=== PATIENT | female | born 1985 | race African-American/Black ===

== ENCOUNTER 2016-11-14 19:22 | Emergency (ER) | payer MEDICAID ==
[~2016-11-14] VITALS: Ht 160 cm; Wt 129.3 kg
[~2016-11-14 19:22] MED LIST: NAPR500 PO; ULTR50TA PO
[2016-11-14 19:51] VITALS: BP 126/88; PULSE 107; RESP 16; TEMP 100.9; O2SAT 100
[2016-11-14 20:23] VITALS: BP 139/76; PULSE 96; RESP 18; TEMP 100.9; O2SAT 100
[2016-11-14] MEDS ORDERED: SODIUM CHLORIDE 0.9% FLUSH 5 ML FLUSH IVF PRN (21:15)
[2016-11-14] MEDS ORDERED: SODIUM CHLOR 0.9% 1000 ML INJ 1,000 ML IV ONE (21:15)
[2016-11-14 21:26] VITALS: RESP 18; O2SAT 99
[2016-11-14 21:28] VITALS: BP_SYST 134; BP_SYST 138; BP_DIAS 74; BP_DIAS 76; PULSE 94
[2016-11-14 21:31] LABS: AUTOMATED NEUTROPHIL # 2.9 TH/MM3 (1.8-7.7); BASOPHIL % 0.5 % (0.0-2.0); EOSINOPHIL # 0.1 TH/MM3 (0-0.4); HEMATOCRIT 38.2 % (35.0-46.0); HEMO FLAGS DIFF FINAL; LYMPH % 32.5 % (9.0-44.0); LYMPHOCYTE # 1.7 TH/MM3 (1.0-4.8); MEAN CELL VOLUME 80.3 FL (80.0-100.0); MEAN CORPUSCULAR HEMOGLOBIN 26.7 PG (27.0-34.0); MEAN CORPUSCULAR HGB CONC 33.3 % (32.0-36.0); PLATELET COUNT 224 TH/MM3 (150-450); RED BLOOD COUNT 4.75 MIL/MM3 (4.00-5.30); RED CELL DISTRIBUTION WIDTH 12.2 % (11.6-17.2); WHITE BLOOD COUNT 5.2 TH/MM3 (4.0-11.0)
--- NOTE | 2016-11-14 21:49 | RADHPO ---
EXAM DATE/TIME: 11/14/2016 21:35 [place] COMPARISON: CHEST PA & LAT, December 16, 2014, 12:45. INDICATIONS : HEADACHE, BODYACHES AND LIGHTHEADED PAST 36 HOURS MEDICAL HISTORY : No additional SURGICAL HISTORY : Cholecystectomy. ENCOUNTER: Initial ACUITY: 2 days PAIN SCORE: 5/10 LOCATION: Bilateral chest FINDINGS: PA and lateral views of the chest demonstrate the lungs to be symmetrically aerated without evidence of mass, infiltrate or effusion. The PA study is needed nspiratory and apical lordotic in technique with accentuation of lung markings. The cardiomediastinal contours are unremarkable. Osseous structu res are intact. CONCLUSION: Suboptimal exam demonstrating no acute cardiopulmonary disease. Crescencio Gomes MD on November 14, 2016 at 21:47 Board Certified Radiologist. This report was verified electronically.
[2016-11-14 21:54] LABS: BICARBONATE 25.3 MEQ/L (21.0-32.0)
[2016-11-14 22:10] VITALS: BP 131/70; PULSE 92; RESP 18; O2SAT 99
[2016-11-14] MEDS ORDERED: ONDANSETRON HCL 4 MG/2 ML VIAL IV PUSH ONE (22:45)
[2016-11-14] MEDS ORDERED: KETOROLAC TROMETHAMINE 30 MG/ML (IVP) VIAL IV PUSH ONE (22:45)
[2016-11-14 23:30] VITALS: BP 136/72; PULSE 92; RESP 18; O2SAT 99
[2016-11-14 23:31] LABS: BLOOD, URINE NEG (NEG); GLUCOSE,URINE NEG (NEG); KETONE, URINE NEG (NEG); NITRITE,URINE NEG (NEG)
[2016-11-14] MEDS ORDERED: IBUP-232 PO (23:35)
--- NOTE | 2016-11-14 23:36 | PD ---
HPI Chief Complaint: Headache Time Seen by Provider: 20:25 Travel History International Travel<30 days: No Contact w/Intl Traveler<30days: No Traveled to known affect area: No History of Present Illness HPI Patient is a 31-year-old female presents with fever body aches chest congestion and a headache for the past week. Patient states the symptoms began gradually worsening. Tried [id number] cold medicine at home without relief. Denies any cough or sputum production. Denies any foreign travel. Has not gotten a flu shot this year. Denies any nuchal rigidity. PFSH Past Medical History Diminished Hearing: No Immunizations Current: Yes Tetanus Vaccination: < 5 Years Influenza Vaccination: Yes ?: Not LMP: 3 YEARS AGO Menopausal: No : 3 Para: 3 Past Surgical History Cholecystectomy: Yes Social History Alcohol Use: No Tobacco Use: No Substance Use: No Allergies-Medications (Allergen,Severity, Reaction): Coded Allergies: No Known Allergies (Unverified , 11/14/16) Reported Meds & Prescriptions Reported Meds & Active Scripts Active Ibuprofen 600 Mg Tab 600 Mg PO Q6H PRN Review of Systems Except as stated in HPI: all other systems reviewed are Neg Physical Exam Narrative GENERAL: Well-developed well-nourished in no apparent distress, overweight. SKIN: Warm and dry. HEAD: Atraumatic. Normocephalic. EYES: Pupils equal and round. No scleral icterus. No injection or drainage. ENT: No nasal bleeding or discharge. Mucous membranes pink and moist. NECK: Trachea midline. No JVD. Kernig's and Brudzinski signs negative. CARDIOVASCULAR: Regular rate and rhythm. No murmur appreciated. RESPIRATORY: No accessory muscle use. Clear to auscultation. Breath sounds equal bilaterally. GASTROINTESTINAL: Abdomen soft, non-tender, nondistended. Hepatic and splenic margins not palpable. MUSCULOSKELETAL: No obvious deformities. No clubbing. No cyanosis. No edema. NEUROLOGICAL: Awake and alert. cranial nerves II through XII are grossly intact and nonfocal 5 out of 5 strength in all 4 extremities. Motor grossly within normal limits. Normal speech. PSYCHIATRIC: Appropriate mood and affect; insight and judgment normal. Data Data Last Documented VS Vital Signs Date Time Temp Pulse Resp B/P Pulse Ox O2 Delivery O2 Flow Rate FiO2 11/14/16 23:59 74 18 98 11/14/16 23:30 136/72 Room Air 11/14/16 20:23 100.9 Orders Basic Metabolic Panel (Bmp) (11/14/16 21:02) Complete Blood Count With Diff (11/14/16 21:02) Ecg Monitoring (11/14/16 21:02) Bilateral Bp Monitoring (11/14/16 21:02) Iv Access Insert/Monitor (11/14/16 21:02) Oximetry (11/14/16 21:02) Oxygen Administration (11/14/16 21:02) Sodium Chloride 0.9% Flush (Ns Flush) (11/14/16 21:15) Chest, Pa & Lat (11/14/16 21:02) Sodium Chlor 0.9% 1000 Ml Inj (Ns 1000 M (11/14/16 21:15) Influenzae A/B Antigen (11/14/16 21:02) Urinalysis - C+S If Indicated (11/14/16 22:32) Ed Urine Pregnancytest Poc (11/14/16 22:32) Ketorolac Inj (Toradol Inj) (11/14/16 22:45) Ondansetron Inj (Zofran Inj) (11/14/16 22:45) Cath For Specimen (11/14/16 23:05) Urine Culture (11/14/16 23:15) Labs Laboratory Tests Test 11/14/16 11/14/16 21:10 23:15 White Blood Count 5.2 TH/MM3 Red Blood Count 4.75 MIL/MM3 Hemoglobin 12.7 GM/DL Hematocrit 38.2 % Mean Corpuscular Volume 80.3 FL Mean Corpuscular Hemoglobin 26.7 PG Mean Corpuscular Hemoglobin 33.3 % Concent Red Cell Distribution Width 12.2 % Platelet Count 224 TH/MM3 Mean Platelet Volume 8.6 FL Neutrophils (%) (Auto) 56.0 % Lymphocytes (%) (Auto) 32.5 % Monocytes (%) (Auto) 9.0 % Eosinophils (%) (Auto) 2.0 % Basophils (%) (Auto) 0.5 % Neutrophils # (Auto) 2.9 TH/MM3 Lymphocytes # (Auto) 1.7 TH/MM3 Monocytes # (Auto) 0.5 TH/MM3 Eosinophils # (Auto) 0.1 TH/MM3 Basophils # (Auto) 0.0 TH/MM3 CBC Comment DIFF FINAL Differential Comment Sodium Level 139 MEQ/L Potassium Level 4.0 MEQ/L Chloride Level 105 MEQ/L Carbon Dioxide Level 25.3 MEQ/L Anion Gap 9 MEQ/L Blood Urea Nitrogen 6 MG/DL Creatinine 0.76 MG/DL Estimat Glomerular Filtration 107 ML/MIN Rate Random Glucose 90 MG/DL Calcium Level 8.3 MG/DL Urine Collection Type Urine Color YELLOW Urine Turbidity SLIGHT Urine pH 6.0 Urine Specific [place] 1.014 Urine Protein NEG mg/dL Urine Glucose (UA) NEG mg/dL Urine Ketones NEG mg/dL Urine Occult Blood NEG Urine Nitrite NEG Urine Bilirubin NEG Urine Leukocyte Esterase MOD Urine RBC 0-3 /hpf Urine WBC 9-14 /hpf Urine Squamous Epithelial 0-5 /hpf Cells Urine Bacteria OCC /hpf Urine Mucus OCC /lpf Microscopic Urinalysis Comment CULTURE INDICATED MDM Medical Decision Making Medical Screen Exam Complete: Yes Emergency Medical Condition: Yes Differential Diagnosis Influenza, viral-like illness, pneumonia, meningitis is highly unlikely, Narrative Course Patient roomed in the emergency department, labs are reassuring, white blood count is 5.2, chemistry is normal, UA shows contaminated specimen which is nitrate negative. Chest x-ray negative, patient was given multiple medications in the emergency department and began feeling better. She stated that she wanted to go home. Discussed with her follow-up with a primary care physician or return to ED criteria. Diagnosis Primary Impression: Flu-like symptoms Med/Other Pt SpecificInfo: Prescription(s) given Scripts Ibuprofen 600 Mg [id number] Mg PO Q6H PRN (PAIN SCALE 1 TO 10) #20 TAB Ref 0 Prov:Reagan Worley MD 11/14/16 Disposition: 01 DISCHARGE HOME Condition: Stable Reagan Worley MD Nov 14, 2016 23:35
[2016-11-14 23:38] LABS: URINE COLOR YELLOW (YELLW/STRAW)
[2016-11-14 23:39] LABS: SQUAMOUS EPITHELIAL CELL URINE 0-5 /hpf (0-5)
[2016-11-14 23:40] LABS: MUCUS URINE OCC /lpf (OCC); RBC, URINE 0-3 /hpf (0-3)
[2016-11-14 23:41] LABS: BACTERIA, URINE OCC /hpf; COMMENT (UR) CULTURE INDICATED; CULTURE IF INDICATED CULTURE INDICATED
[2016-11-30] MEDS ORDERED: SUMA25TA2 PO (10:51)
[2017-04-26] MEDS ORDERED: ALBU6.7H INH (10:23)
[2017-04-26] MEDS ORDERED: FISH1000 PO (10:27)
== END 2016-11-15 | disposition home or self-care (01) ==
LOC: PHED 19:22
DX: R51 Headache (principal); M79.1 Myalgia; R09.89 Other specified symptoms and signs involving the circulatory and respiratory systems
CPT/HCPCS: 71020; 80048; 81001; 84703; 85025; 87086; 87804; 96361; 96374; 96375; 99284; J1885; J2405; J7030

== ENCOUNTER → 2017-05-04 | Outpatient (CLI) | payer MEDICAID ==
[~2017-05-04] MED LIST changes: +ALBU6.7H INH; +FISH1000 PO; +IBUP-232 PO; -NAPR500 PO; +SUMA25TA2 PO; -ULTR50TA PO
--- NOTE | 2017-05-11 11:58 | RSPPFT ---
DATE OF PROCEDURE: 05/04/17 COMMENTS: Spirometry demonstrates an FEV1 of 2.2 at 86% of predicted, FVC of 2.5 at 81%, FEF 25-75 at 120%. Post-bronchodilator study demonstrated no significant change. Flow volume loops suggest a restrictive pattern. IMPRESSION: 1. No significant obstructive disease. 2. Mild restrictive disease based on reduced FVC. 3. No significant change following use of bronchodilator.
== END ==
LOC: HRSP 11:05
PROVIDERS: ATTEND Family Medicine
DX: R06.02 Shortness of breath (principal)
CPT/HCPCS: 94060

== ENCOUNTER 2017-07-20 18:08 | Emergency (ER) | payer MEDICAID ==
[2017-07-20 18:28] VITALS: BP 147/91; PULSE 87; RESP 20; TEMP 98.6; O2SAT 100
[2017-07-20] MEDS ORDERED: ALBU0.08 NEB (19:07)
[2017-07-20] MEDS ORDERED: BENZ100 PO (19:07)
--- NOTE | 2017-07-20 19:21 | PD ---
HPI Chief Complaint: Cold / Flu Symptoms Time Seen by Provider: 18:53 Travel History International Travel<30 days: No Contact w/Intl Traveler<30days: No Traveled to known affect area: No History of Present Illness HPI 32-year-old female presents to the emergency room for evaluation of mildly productive cough, congestion, and sore throat for the past 3 days. She has several sick contacts. Patient has not been taking anything for her symptoms. Cough is so severe, and is coughing her back and chest wall to her. Sputum is clear. She has been using her nebulizer treatment which moderately relieves symptoms. Inhaler does not seem to be helping. Patient denies fever, chills, earache, nausea, and vomiting. No chronic medical conditions or daily medications. PFSH Past Medical History Diminished Hearing: No Immunizations Current: Yes ?: Not LMP: 4 YEARS AGO, IUD Menopausal: No : 3 Para: 3 Past Surgical History Cholecystectomy: Yes Social History Alcohol Use: No Tobacco Use: No Substance Use: No Allergies-Medications (Allergen,Severity, Reaction): Coded Allergies: No Known Allergies (Unverified , 04/26/17) Reported Meds & Prescriptions Reported Meds & Active Scripts Active Tessalon Perles (Benzonatate) 100 Mg Cap 100 Mg PO TID PRN Albuterol Neb (Albuterol Sulfate) 2.5 Mg/3 Ml Neb 2.5 Mg NEB TID NEB PRN Proventil Hfa 6.7 GM Inh (Albuterol Sulfate) 90 Mcg/Act Aer 1 Puff INH Q4H PRN Sumatriptan (Sumatriptan Succinate) 25 Mg Tab 25 Mg PO ONCE PRN If a satisfactory response has not been obtained at 2 hours, a second dose may be administered Review of Systems Except as stated in HPI: all other systems reviewed are Neg Physical Exam Narrative GENERAL: Well-nourished, well-developed female in no acute distress. Afebrile. Ambulatory. SKIN: Focused skin assessment warm/dry. HEAD: Normocephalic. EYES: No scleral icterus. No injection or drainage. ENT: Mucosa pink and moist. Mild erythema without edema or exudates. No uvular edema. No uvular, palatal, or tonsillar deviation. Airway patent. Nasal turbinates appear normal without nasal blood, purulent drainage or septal hematoma. EARS: Bilateral pinnae and external canals appear within normal limits. Bilateral tympanic membranes without erythema, dullness or perforation. NECK: Supple, trachea midline. No JVD or lymphadenopathy. CARDIOVASCULAR: Regular rate and rhythm without murmurs, gallops, or rubs. RESPIRATORY: Breath sounds equal bilaterally. No accessory muscle use. No crackles, rales, wheezes, or rhonchi. Data Data Last Documented VS Vital Signs Date Time Temp Pulse Resp B/P (MAP) Pulse Ox O2 Delivery O2 Flow Rate FiO2 07/20/17 18:28 98.6 87 20 147/91 (109) 100 MDM Medical Decision Making Medical Screen Exam Complete: Yes Emergency Medical Condition: Yes Medical Record Reviewed: Yes Differential Diagnosis Upper respiratory infection, allergic rhinitis, flulike symptoms, bronchitis Narrative Course 32-year-old female presents to the emergency room for evaluation of nonproductive cough, congestion, and sore throat for the past 2 days. Patient has multiple sick contacts. She is afebrile and well-appearing in the emergency room. Denies history of fevers. States her albuterol images have been improving her symptoms. Vital exam is unremarkable. Lungs sounds clear and equal bilaterally. No increased work of breathing. 100% on room air. This is upper respiratory infection. Patient discharged with prescription for Tessalon Perles and refill of albuterol treatments. Told to follow-up with her primary care physician or return for worsening symptoms. She understands and agrees to plan. Diagnosis Primary Impression: Upper respiratory infection Qualified Codes: J00 - Acute nasopharyngitis [common cold] Referrals: Primary Care Physician Additional Instructions: Rest and drink plenty of fluids. Albuterol as directed, as needed for shortness of breath and cough. Do not take more than directed. Tessalon Perles as directed, as needed for cough. Follow-up with a primary care physician. Return to the emergency room for worsening symptoms. Med/Other Pt SpecificInfo: Prescription(s) given Scripts Benzonatate (Tessalon Perles) 100 Mg Cap 100 MG PO TID Y for COUGH, #21 CAP 0 Refills Prov: Paulina Benito DO 07/20/17 Albuterol Neb (Albuterol Neb) 2.5 Mg/3 Ml Neb 2.5 MG NEB TID NEB Y for SHORTNESS OF BREATH, #60 NEBULE 0 Refills Prov: Roxie Benitorolando JAFFE 07/20/17 Disposition: 01 DISCHARGE HOME Condition: Stable Araceli Coombs Jul 20, 2017 19:21
== END 2017-07-20 19:46 | disposition home or self-care (01) ==
LOC: PHEFT 18:08
DX: J00 Acute nasopharyngitis [common cold] (principal)
CPT/HCPCS: 99284

== ENCOUNTER 2017-08-16 14:27 | Emergency (ER) | payer MEDICAID ==
[~2017-08-16] VITALS: Ht 160 cm; Wt 126.9 kg
[~2017-08-16 14:27] MED LIST changes: +ALBU0.08 NEB; +BENZ100 PO; -FISH1000 PO; -IBUP-232 PO
[2017-08-16 14:35] VITALS: BP 137/86; PULSE 107; RESP 16; TEMP 98.2; O2SAT 99
--- NOTE | 2017-08-16 15:02 | PD ---
HPI Chief Complaint: Back/ Neck Pain or Injury Time Seen by Provider: 14:54 Travel History International Travel<30 days: No Contact w/Intl Traveler<30days: No Traveled to known affect area: No History of Present Illness HPI 32-year-old female here for low back pain for 3 days. Denies inciting events but states that pain worsens when moving around, relieved with rest, hasn't taken medication to relieve her pain. Describes a mild stabbing pain mainly left lower lumbar with mild radiation to the flanks. She has a history of kidney stones but denies any other medical history. Denies a history of trauma , fever, chills, chest pain, shortness of breath, dysuria, frequency, hematuria , hesitancy, saddle anesthesia, loss of bowel or bladder function. PFSH Past Medical History Diminished Hearing: No Immunizations Current: Yes Migraines: Yes Tetanus Vaccination: Unknown Influenza Vaccination: No ?: Not LMP: yesterday Menopausal: No : 3 Para: 3 Past Surgical History Cholecystectomy: Yes Social History Alcohol Use: No Tobacco Use: No Substance Use: No Allergies-Medications (Allergen,Severity, Reaction): Coded Allergies: No Known Allergies (Unverified , 08/16/17) Reported Meds & Prescriptions Reported Meds & Active Scripts Active Macrobid (Nitrofurantoin Monoh/Nitrofur Macro) 100 Mg Cap 100 Mg PO BID 7 Days Robaxin (Methocarbamol) 500 Mg Tab 500 Mg PO TID 3 Days Albuterol Neb (Albuterol Sulfate) 2.5 Mg/3 Ml Neb 2.5 Mg NEB TID NEB PRN Proventil Hfa 6.7 GM Inh (Albuterol Sulfate) 90 Mcg/Act Aer 1 Puff INH Q4H PRN Sumatriptan (Sumatriptan Succinate) 25 Mg Tab 25 Mg PO ONCE PRN If a satisfactory response has not been obtained at 2 hours, a second dose may be administered Review of Systems Except as stated in HPI: all other systems reviewed are Neg Physical Exam Narrative GENERAL: Well-nourished, well-developed patient, in no apparent distress testing during the exam SKIN: Focused skin assessment warm/dry. HEAD: Normocephalic. EYES: No scleral icterus. No injection or drainage. NECK: Supple, trachea midline. No JVD CARDIOVASCULAR: Regular rate and rhythm without murmurs, gallops, or rubs. RESPIRATORY: Breath sounds equal bilaterally. No accessory muscle use. GASTROINTESTINAL: Abdomen soft, non-tender, nondistended. MUSCULOSKELETAL: No cyanosis, or edema. BACK: No CVA tenderness. No rash. No point tenderness on palpation of the spine. Nontender without obvious deformity. Mild TTP to the left lower lumbar paraspinal muscles. DTRs intact. Motor sensation within normal limits. Data Data Last Documented VS Vital Signs Date Time Temp Pulse Resp B/P (MAP) Pulse Ox O2 Delivery O2 Flow Rate FiO2 08/16/17 14:35 98.2 107 16 137/86 (103) 99 Orders Orders Urinalysis - C+S If Indicated (08/16/17 14:53) Ed Urine Pregnancytest Poc (08/16/17 14:53) Ed Discharge Order (08/16/17 15:08) Urine Culture (08/16/17 14:45) Labs Laboratory Tests Test 08/16/17 14:45 Urine Color YELLOW Urine Turbidity SLIGHT Urine pH 6.0 Urine Specific [place] 1.026 Urine Protein NEG mg/dL Urine Glucose (UA) NEG mg/dL Urine Ketones NEG mg/dL Urine Occult Blood SMALL Urine Nitrite NEG Urine Bilirubin NEG Urine Leukocyte Esterase TRACE Urine RBC 0-3 /hpf Urine WBC 15-19 /hpf Urine WBC Clumps FEW Urine Squamous Epithelial Cells 0-5 /hpf Urine Bacteria OCC /hpf Urine Mucus FEW /lpf Microscopic Urinalysis Comment CULTURE INDICATED MDM Medical Decision Making Medical Screen Exam Complete: Yes Emergency Medical Condition: Yes Differential Diagnosis Lumbar strain versus sprain versus fracture vs uti Narrative Course 32-year-old female with a three-day history of low back pain. States that she did not have any trauma and cannot think of anything that would cause his back pain. Pain is located in the left lumbar region, described as stabbing, with some mild pain radiating to the sides. Denies red flag symptoms. She denies any urinary complaints including dysuria, hematuria, frequency. She does have a history of kidney stones, denies any other chronic medical issues. Physical exam revealed mild tenderness to left lumbar paraspinous muscles, no CVA tenderness. Back without step-offs, crepitus, or Midline tenderness. Neurovascularly intact. UA revealed bacteria and trace blood. We'll treat for a UTI and muscle strain. Advised to return to emergency department if signs symptoms persist or worsen. Diagnosis Primary Impression: Acute back pain Qualified Codes: M54.5 - Low back pain Additional Impression: UTI (urinary tract infection) Qualified Codes: N30.00 - Acute cystitis without hematuria Referrals: Primary Care Physician Additional Instructions: Perform light stretches of the lower back and legs, and alternate heat and ice packs. If you develop increased pain, weakness, fever, chills, or bowel or bladder issues, return to the ED for further treatment and evaluation. Follow up with your primary care physician in 2-3 days. Scripts Nitrofurantoin Monohydrate Macrocrystals (Macrobid) 100 Mg Cap 100 MG PO BID for Infection for 7 Days, #14 CAP 0 Refills Prov: Prerna Muro 08/16/17 Methocarbamol (Robaxin) 500 Mg Tab 500 MG PO TID for Muscle Spasm for 3 Days, #10 TAB 0 Refills Prov: Andree Garcia MD 08/16/17 Disposition: 01 DISCHARGE HOME Condition: Stable Prerna Muro Aug 16, 2017 15:02
[2017-08-16 15:03] LABS: BLOOD, URINE SMALL (NEG); GLUCOSE,URINE NEG (NEG); KETONE, URINE NEG (NEG); NITRITE,URINE NEG (NEG)
[2017-08-16] MEDS ORDERED: ROBA500T PO (15:05)
[2017-08-16 15:08] LABS: MUCUS URINE FEW /lpf (OCC); RBC, URINE 0-3 /hpf (0-3); SQUAMOUS EPITHELIAL CELL URINE 0-5 /hpf (0-5); URINE COLOR YELLOW (YELLW/STRAW); WBC, URINE 15-19 /hpf (0-5)
[2017-08-16 15:09] LABS: BACTERIA, URINE OCC /hpf; COMMENT (UR) CULTURE INDICATED; CULTURE IF INDICATED CULTURE INDICATED
[2017-08-16] MEDS ORDERED: MACR100C2 PO (15:11)
== END 2017-08-16 15:27 | disposition home or self-care (01) ==
LOC: PHEFT 14:27
DX: M54.5 Low back pain (principal); N30.00 Acute cystitis without hematuria
CPT/HCPCS: 81001; 84703; 87086; 99284

== ENCOUNTER 2017-08-24 14:26 | Emergency (ER) | payer MEDICAID ==
[~2017-08-24] VITALS: Ht 160 cm; Wt 125.8 kg
[~2017-08-24 14:26] MED LIST changes: -BENZ100 PO; +MACR100C2 PO; +ROBA500T PO
[2017-08-24 14:29] VITALS: BP 131/58; PULSE 102; RESP 16; TEMP 99.1; O2SAT 99
[2017-08-24] MEDS ORDERED: SODIUM CHLOR 0.9% 1000 ML INJ 1,000 ML IV SCH (14:48)
[2017-08-24 14:53] VITALS: O2SAT 98
--- NOTE | 2017-08-24 14:54 | PD ---
HPI Chief Complaint: Abdominal Pain Time Seen by Provider: 14:37 Travel History International Travel<30 days: No Contact w/Intl Traveler<30days: No Traveled to known affect area: No History of Present Illness HPI The patient is a 32-year-old [place] female who presents to the emergency department for back pain. The patient has a two-week history of mid to lower back pain which has been intermittent, but constant for the last several hours. The pain is located mid aspect of the back, occasionally radiates to the flanks bilaterally into the lower pelvic area. The patient denies any dysuria, frequency, urgency, vaginal discharge, or vaginal bleeding. The patient recently had an IUD removed in July, had a last menstrual cycle 2 weeks ago, and denies . She is sexually active. The patient is unable to see her primary physician, Dr. Nova in the last 2 weeks, however, does have an appointment next month. The patient did complain of mild nausea secondary to pain yesterday but denies any current vomiting or diarrhea. She denies any associated fever, chills, or sweats. Symptoms are moderate without any alleviating or exacerbating factors. The patient does state she stands on her feet for prolonged periods of time, is unsure if this is exacerbating her pain. PFSH Past Medical History Diabetes: No Diminished Hearing: No Immunizations Current: Yes Migraines: Yes ?: Not LMP: 08/08/2017 Menopausal: No : 3 Para: 3 Past Surgical History Cholecystectomy: Yes Social History Alcohol Use: No Tobacco Use: No Substance Use: No Allergies-Medications (Allergen,Severity, Reaction): Coded Allergies: No Known Allergies (Unverified , 08/24/17) Reported Meds & Prescriptions Reported Meds & Active Scripts Active No Active Prescriptions or Reported Medications Review of Systems Except as stated in HPI: all other systems reviewed are Neg General / Constitutional: No: Fever Cardiovascular: No: Chest Pain or Discomfort Respiratory: No: Shortness of Breath Gastrointestinal: Positive: Nausea, No: Vomiting, Diarrhea, Abdominal Pain Genitourinary: Positive: Pelvic Pain, No: Urgency, Frequency, Dysuria, Discharge, Vaginal Bleeding Skin: No Rash Physical Exam Narrative GENERAL: Awake, alert, pleasant 32 year-old female who appears her stated age and is in no acute respiratory distress. SKIN: Focused skin assessment warm/dry. HEAD: Atraumatic. Normocephalic. EYES: No injection or drainage. ENT: No nasal bleeding or discharge. Mucous membranes pink and moist. NECK: Trachea midline. No JVD. CARDIOVASCULAR: Regular rate and rhythm. No murmur appreciated. RESPIRATORY: No accessory muscle use. Clear to auscultation. Breath sounds equal bilaterally. GASTROINTESTINAL: Abdomen soft, non-tender, nondistended. No suprapubic tenderness. No rebound tenderness. Back: No CVA tenderness. Mid line tenderness noted but no deformity noted. Comment: The exam was performed in the presence of a female nurse. External examination reveals no rashes or lesions. Speculum examination reveals scant thin to thick white discharge in vaginal vault. Cervix is closed. No cervical motion tenderness. No adnexal tenderness. MUSCULOSKELETAL: No obvious deformities. No clubbing. No cyanosis. No edema. NEUROLOGICAL: Awake and alert. No obvious cranial nerve deficits. Motor grossly within normal limits. Normal speech. PSYCHIATRIC: Appropriate mood and affect; insight and judgment normal. Data Data Last Documented VS Vital Signs Date Time Temp Pulse Resp B/P (MAP) Pulse Ox O2 Delivery O2 Flow Rate FiO2 08/24/17 14:53 98 Room Air 08/24/17 14:29 99.1 102 16 131/58 (82) Orders Orders Urinalysis - C+S If Indicated (08/24/17 14:33) Ed Urine Pregnancytest Poc (08/24/17 14:33) Complete Blood Count With Diff (08/24/17 14:48) Comprehensive Metabolic Panel (08/24/17 14:48) Lipase (08/24/17 14:48) Iv Access Insert/Monitor (08/24/17 14:48) Ecg Monitoring (08/24/17 14:48) Oximetry (08/24/17 14:48) Morphine Inj (Morphine Inj) (08/24/17 15:00) Ondansetron Inj (Zofran Inj) (08/24/17 15:00) Sodium Chlor 0.9% 1000 Ml Inj (Ns 1000 M (08/24/17 14:48) Sodium Chloride 0.9% Flush (Ns Flush) (08/24/17 15:00) Ketorolac Inj (Toradol Inj) (08/24/17 15:00) Gc And Chlamydia Pcr (08/24/17 15:07) Wet Prep Profile (08/24/17 15:07) Labs Laboratory Tests Test 08/24/17 14:38 08/24/17 14:50 08/24/17 15:50 Urine Collection Type CLEAN CATCH Urine Color YELLOW Urine Turbidity CLEAR Urine pH 5.5 Urine Specific [place] 1.030 Urine Protein NEG mg/dL Urine Glucose (UA) NEG mg/dL Urine Ketones NEG mg/dL Urine Occult Blood NEG Urine Nitrite NEG Urine Bilirubin NEG Urine Leukocyte Esterase NEG Urine RBC 0-3 /hpf Urine WBC 0-2 /hpf Urine Squamous Epithelial Cells 0-5 /hpf Urine Amorphous Sediment FEW Microscopic Urinalysis Comment CULT NOT INDICATED Urine Collection Time 1430 White Blood Count 6.2 TH/MM3 Red Blood Count 4.60 MIL/MM3 Hemoglobin 12.3 GM/DL Hematocrit 37.2 % Mean Corpuscular Volume 80.9 FL Mean Corpuscular Hemoglobin 26.7 PG Mean Corpuscular Hemoglobin Concent 33.1 % Red Cell Distribution Width 12.4 % Platelet Count 262 TH/MM3 Mean Platelet Volume 8.7 FL Neutrophils (%) (Auto) 54.8 % Lymphocytes (%) (Auto) 32.6 % Monocytes (%) (Auto) 6.0 % Eosinophils (%) (Auto) 6.0 % Basophils (%) (Auto) 0.6 % Neutrophils # (Auto) 3.4 TH/MM3 Lymphocytes # (Auto) 2.0 TH/MM3 Monocytes # (Auto) 0.4 TH/MM3 Eosinophils # (Auto) 0.4 TH/MM3 Basophils # (Auto) 0.0 TH/MM3 CBC Comment DIFF FINAL Differential Comment Blood Urea Nitrogen 8 MG/DL Creatinine 0.71 MG/DL Random Glucose 98 MG/DL Total Protein 7.7 GM/DL Albumin 3.3 GM/DL Calcium Level 8.5 MG/DL Alkaline Phosphatase 96 U/L Aspartate Amino Transf (AST/SGOT) 26 U/L Alanine Aminotransferase (ALT/SGPT) 32 U/L Total Bilirubin 0.2 MG/DL Sodium Level 137 MEQ/L Potassium Level 4.1 MEQ/L Chloride Level 103 MEQ/L Carbon Dioxide Level 27.3 MEQ/L Anion Gap 7 MEQ/L Estimat Glomerular Filtration Rate 115 ML/MIN Lipase 134 U/L Clue Cells (Wet Prep) PRESENT Vaginal Trichomonas (Wet Prep) NONE SEEN Vaginal Yeast (Wet Prep) NONE SEEN MDM Medical Decision Making Medical Screen Exam Complete: Yes Emergency Medical Condition: Yes Medical Record Reviewed: Yes Interpretation(s) Laboratory Tests Test 08/24/17 14:38 08/24/17 14:50 08/24/17 15:50 Urine Collection Type CLEAN CATCH Urine Color YELLOW Urine Turbidity CLEAR Urine pH 5.5 Urine Specific [place] 1.030 Urine Protein NEG mg/dL Urine Glucose (UA) NEG mg/dL Urine Ketones NEG mg/dL Urine Occult Blood NEG Urine Nitrite NEG Urine Bilirubin NEG Urine Leukocyte Esterase NEG Urine RBC 0-3 /hpf Urine WBC 0-2 /hpf Urine Squamous Epithelial Cells 0-5 /hpf Urine Amorphous Sediment FEW Microscopic Urinalysis Comment CULT NOT INDICATED Urine Collection Time 1430 White Blood Count 6.2 TH/MM3 Red Blood Count 4.60 MIL/MM3 Hemoglobin 12.3 GM/DL Hematocrit 37.2 % Mean Corpuscular Volume 80.9 FL Mean Corpuscular Hemoglobin 26.7 PG Mean Corpuscular Hemoglobin Concent 33.1 % Red Cell Distribution Width 12.4 % Platelet Count 262 TH/MM3 Mean Platelet Volume 8.7 FL Neutrophils (%) (Auto) 54.8 % Lymphocytes (%) (Auto) 32.6 % Monocytes (%) (Auto) 6.0 % Eosinophils (%) (Auto) 6.0 % Basophils (%) (Auto) 0.6 % Neutrophils # (Auto) 3.4 TH/MM3 Lymphocytes # (Auto) 2.0 TH/MM3 Monocytes # (Auto) 0.4 TH/MM3 Eosinophils # (Auto) 0.4 TH/MM3 Basophils # (Auto) 0.0 TH/MM3 CBC Comment DIFF FINAL Differential Comment Blood Urea Nitrogen 8 MG/DL Creatinine 0.71 MG/DL Random Glucose 98 MG/DL Total Protein 7.7 GM/DL Albumin 3.3 GM/DL Calcium Level 8.5 MG/DL Alkaline Phosphatase 96 U/L Aspartate Amino Transf (AST/SGOT) 26 U/L Alanine Aminotransferase (ALT/SGPT) 32 U/L Total Bilirubin 0.2 MG/DL Sodium Level 137 MEQ/L Potassium Level 4.1 MEQ/L Chloride Level 103 MEQ/L Carbon Dioxide Level 27.3 MEQ/L Anion Gap 7 MEQ/L Estimat Glomerular Filtration Rate 115 ML/MIN Lipase 134 U/L Clue Cells (Wet Prep) PRESENT Vaginal Trichomonas (Wet Prep) NONE SEEN Vaginal Yeast (Wet Prep) NONE SEEN Differential Diagnosis Differential diagnosis includes UTI, PID, cervicitis, musculoskeletal pain, , pancreatitis, nephrolithiasis, hydronephrosis. Narrative Course IV was established, labs are drawn and sent, and the patient was placed on cardiac telemetry monitoring and continuous pulse oximetry monitoring. The patient was administered morphine, Zofran, Toradol, and IV fluids. Bedside UA test was negative. UA was sent to lab. UA was unremarkable. CBC, LFTs, lipase are within normal limits. Therefore, pelvic examination was performed. Wet prep was sent to lab. Wet prep is positive for bacterial vaginosis, therefore, patient will be treated with Flagyl twice a day for one week. She will be placed on ibuprofen as needed for pain. She is advised to follow-up with her primary physician, Dr. Onofre. She is advised to return if symptoms worsen or progress. She will be provided a copy of her laboratory evaluation from today's ER visit for her follow-up visit with her primary physician. Diagnosis Primary Impression: Low back pain Qualified Codes: M54.5 - Low back pain Additional Impression: Bacterial vaginosis Patient Instructions: General Instructions Additional Instructions: Medications as directed. Please provide the patient a copy of her laboratory evaluation from today's ER visit. Do not drink alcohol while taking Flagyl. Follow-up with your primary physician. Return if symptoms worsen or progress. Med/Other Pt SpecificInfo: Prescription(s) given Scripts Ibuprofen (Ibuprofen) 600 Mg Tab 600 MG PO Q6H Y for Pain/Inflammation, #20 TAB 0 Refills Prov: Simone Robison MD 08/24/17 Metronidazole (Flagyl) 500 Mg Tab 500 MG PO BID for Infection for 7 Days, #14 TAB 0 Refills Prov: Simone Robison MD 08/24/17 Disposition: DISCHARGE HOME Condition: Stable Simone Robison MD Aug 24, 2017 14:54
[2017-08-24 14:56] LABS: BLOOD, URINE NEG (NEG); GLUCOSE,URINE NEG (NEG); KETONE, URINE NEG (NEG); NITRITE,URINE NEG (NEG); PH, URINE 5.5 (5.0-8.5)
[2017-08-24] MEDS ORDERED: SODIUM CHLORIDE 0.9% FLUSH 10 ML FLUSH IV FLUSH PRN (15:00)
[2017-08-24] MEDS ORDERED: MORPHINE SULFATE 4 MG/ML INJ IV PUSH ONE (15:00)
[2017-08-24] MEDS ORDERED: KETOROLAC TROMETHAMINE 30 MG/ML (IVP) VIAL IVP ONE (15:00)
[2017-08-24] MEDS ORDERED: ONDANSETRON HCL 4 MG/2 ML VIAL IVP ONE (15:00)
[2017-08-24 15:01] LABS: AUTOMATED NEUTROPHIL # 3.4 TH/MM3 (1.8-7.7); BASOPHIL % 0.6 % (0.0-2.0); EOSINOPHIL # 0.4 TH/MM3 (0-0.4); HEMATOCRIT 37.2 % (35.0-46.0); HEMO FLAGS DIFF FINAL; LYMPH % 32.6 % (9.0-44.0); MEAN CELL VOLUME 80.9 FL (80.0-100.0); MEAN CORPUSCULAR HEMOGLOBIN 26.7 PG (27.0-34.0); MEAN CORPUSCULAR HGB CONC 33.1 % (32.0-36.0); NEUT % 54.8 % (16.0-70.0); PLATELET COUNT 262 TH/MM3 (150-450); RED CELL DISTRIBUTION WIDTH 12.4 % (11.6-17.2); WHITE BLOOD COUNT 6.2 TH/MM3 (4.0-11.0)
[2017-08-24 15:09] LABS: CHLORIDE 103 MEQ/L (98-107); POTASSIUM 4.1 MEQ/L (3.5-5.1); SODIUM (NA) 137 MEQ/L (136-145)
[2017-08-24 15:13] LABS: ANION GAP 7 MEQ/L (5-15); BICARBONATE 27.3 MEQ/L (21.0-32.0); BLOOD UREA NITROGEN 8 MG/DL (7-18)
[2017-08-24 15:16] LABS: ALT (GPT) 32 U/L (10-53); AST (GOT) 26 U/L (15-37); GLOMERULAR FILTRATION RATE 115 ML/MIN (>89)
[2017-08-24 15:17] LABS: TOTAL BILIRUBIN ADULT 0.2 MG/DL (0.2-1.0)
[2017-08-24 15:18] LABS: ALKALINE PHOSPHATASE 96 U/L (45-117)
[2017-08-24 15:21] LABS: METHOD OF COLLECTION CLEAN CATCH
[2017-08-24 15:22] LABS: COMMENT (UR) CULT NOT INDICATED; CULTURE IF INDICATED CULT NOT INDICATED; RBC, URINE 0-3 /hpf (0-3); SQUAMOUS EPITHELIAL CELL URINE 0-5 /hpf (0-5); URINE COLOR YELLOW (YELLW/STRAW); WBC, URINE 0-2 /hpf (0-5)
[2017-08-24 16:32] VITALS: BP 108/60; PULSE 86; RESP 16; O2SAT 100
[2017-08-24] MEDS ORDERED: METR-1 PO (16:34)
[2017-08-24] MEDS ORDERED: IBUP-232 PO (16:34)
[2017-08-24 19:16] LABS: CHLAMYDIA PCR NOT DETECTED (NOT DETECT); NEISSERIA PCR NOT DETECTED (NOT DETECT)
== END 2017-08-24 16:46 | disposition home or self-care (01) ==
LOC: PHED 14:26
DX: M54.5 Low back pain (principal); N76.0 Acute vaginitis
CPT/HCPCS: 80053; 81001; 83690; 84703; 85025; 87210; 87491; 87591; 96361; 96374; 96375; 99284; J1885; J2270; J2405; J7030

== ENCOUNTER 2017-12-14 08:24 | Emergency (ER) | payer MEDICAID ==
[~2017-12-14] VITALS: Ht 160 cm; Wt 125.0 kg
[~2017-12-14 08:24] MED LIST changes: -ALBU0.08 NEB; -ALBU6.7H INH; +CELE1CAP11 PO; -MACR100C2 PO; -ROBA500T PO; -SUMA25TA2 PO
[2017-12-14 08:28] VITALS: BP 160/99; PULSE 82; RESP 16; TEMP 98.4; O2SAT 99
[2017-12-14] MEDS ORDERED: CYCL10TA PO (09:03)
--- NOTE | 2017-12-14 09:04 | PD ---
HPI Chief Complaint: Back/ Neck Pain or Injury Time Seen by Provider: 08:42 Travel History International Travel<30 days: No Contact w/Intl Traveler<30days: No Traveled to known affect area: No History of Present Illness HPI This 32-year-old female is complaining of low back pain. She's had low back pain in the past she has had x-rays done. She saw Dr. Nova fo back pain and was put on Celebrex. She's been taking the Celebrex but it is not helping much. She has fairly constant pain in his back. It keeps her awake at night. It radiates down the right knee. She does not have numbness or tingling. There is no history of injury PFSH Past Medical History Diabetes: No Diminished Hearing: No Immunizations Current: Yes Migraines: Yes ?: Not LMP: 12/04/2017 Menopausal: No : 3 Para: 3 Past Surgical History Cholecystectomy: Yes Social History Alcohol Use: No Tobacco Use: No Substance Use: No Allergies-Medications (Allergen,Severity, Reaction): Coded Allergies: No Known Allergies (Unverified Adverse Reaction, Unknown, 12/14/17) Reported Meds & Prescriptions Reported Meds & Active Scripts Active Celecoxib 50 Mg Cap 50 Mg PO BID Review of Systems Except as stated in HPI: all other systems reviewed are Neg General / Constitutional: No: Fever, Chills Eyes: No: Diploplia HENT: No: Headaches, Vertigo Cardiovascular: No: Chest Pain or Discomfort, Palpitations Respiratory: No: Cough, Shortness of Breath Genitourinary: No: Urgency, Frequency Musculoskeletal: Positive: Myalgias, Pain Skin: No Rash Neurologic: No: Weakness Endocrine: No: Heat Intolerance, Cold Intolerance Hematologic/Lymphatic: No: Easy Bruising Physical Exam Narrative GENERAL: Well-developed female SKIN: Focused skin assessment warm/dry. HEAD: Atraumatic. Normocephalic. EYES: Pupils equal and round. No scleral icterus. No injection or drainage. ENT: No nasal bleeding or discharge. Mucous membranes pink and moist. NECK: Trachea midline. No JVD. CARDIOVASCULAR: Regular rate and rhythm. No murmur appreciated. RESPIRATORY: No accessory muscle use. Clear to auscultation. Breath sounds equal bilaterally. GASTROINTESTINAL: Abdomen soft, non-tender, nondistended. Hepatic and splenic margins not palpable. MUSCULOSKELETAL: No obvious deformities. No clubbing. No cyanosis. No edema. NEUROLOGICAL: Awake and alert. No obvious cranial nerve deficits. Motor grossly within normal limits. Normal speech. There is some mild tenderness in the area of the right sacroiliac. Straight leg raising is nonpainful bilaterally to 30. There is good strength in the feet. Sensation of the legs is intact PSYCHIATRIC: Appropriate mood and affect; insight and judgment normal. Data Data Last Documented VS Vital Signs Date Time Temp Pulse Resp B/P (MAP) Pulse Ox O2 Delivery O2 Flow Rate FiO2 12/14/17 08:28 98.4 82 16 160/99 (119) 99 MDM Medical Decision Making Medical Screen Exam Complete: Yes Emergency Medical Condition: Yes Medical Record Reviewed: Yes Differential Diagnosis Differential includes back pain exacerbation Narrative Course She has been taking Celebrex without much response. She has not been sleeping well. I will prescribe Flexeril for her to add to her regimen. She'll be off work for 4 days. She is on her feet constantly at work. She works in the cafeteria to school Diagnosis Primary Impression: Acute exacerbation of chronic low back pain Departure Forms: Tests/Procedures, Work Release Enter return to work date: Dec 19, 2017 Scripts Cyclobenzaprine (Flexeril) 10 Mg Tab 10 MG PO TID for Muscle Spasm, #30 TAB 0 Refills Prov: Isaac Klein MD 12/14/17 Disposition: 01 DISCHARGE HOME Condition: Stable Isaac Klein MD Dec 14, 2017 09:04
== END 2017-12-14 09:21 | disposition home or self-care (01) ==
LOC: PHED 08:24
DX: M54.5 Low back pain (principal); G89.29 Other chronic pain
CPT/HCPCS: 99283

== ENCOUNTER 2017-12-24 19:58 | Emergency (ER) | payer MEDICAID ==
[~2017-12-24] VITALS: Ht 160 cm; Wt 120.0 kg
[~2017-12-24 19:58] MED LIST changes: +CYCL10TA PO
[2017-12-24 20:00] VITALS: BP 156/77; PULSE 93; RESP 16; TEMP 98.5; O2SAT 100
--- NOTE | 2017-12-24 20:37 | PD ---
HPI Chief Complaint: Back/ Neck Pain or Injury Time Seen by Provider: 20:36 Travel History International Travel<30 days: No Contact w/Intl Traveler<30days: No Traveled to known affect area: No History of Present Illness HPI 32-year-old female presents emergency department with ongoing right lower back and hip pain for the past month. Patient denies any specific injury. Patient states she has been seen multiple times in multiple places with x-ray showing only arthritis. She has been treated with multiple medications including prednisone, ibuprofen, Tylenol, Flexeril, without any improvement. Patient denies numbness, tingling, or weakness in the right leg or hip. Patient is waiting to get in with her primary care physician in January. She is frustrated that the pain is continuing and worse when she first gets up and by the end of the day. She states it seems to improve when she is up and about for a while. Patient states it does not wake her up at night. She has no bowel or bladder involvement. Pain currently is about a 7 out of 10. She has no known drug allergies. PFSH Past Medical History Diabetes: No Diminished Hearing: No Immunizations Current: Yes Migraines: Yes Tetanus Vaccination: < 5 Years Influenza Vaccination: No ?: Not LMP: 12/08/2017 Menopausal: No : 3 Para: 3 Past Surgical History Cholecystectomy: Yes Social History Alcohol Use: No Tobacco Use: No Substance Use: No Allergies-Medications (Allergen,Severity, Reaction): Coded Allergies: No Known Allergies (Unverified Adverse Reaction, Unknown, 12/24/17) Reported Meds & Prescriptions Reported Meds & Active Scripts Active Flexeril (Cyclobenzaprine HCl) 10 Mg Tab 10 Mg PO TID Celecoxib 50 Mg Cap 50 Mg PO BID Review of Systems Except as stated in HPI: all other systems reviewed are Neg General / Constitutional: No: Fever, Chills Eyes: No: Visual changes HENT: No: Headaches Cardiovascular: No: Chest Pain or Discomfort Respiratory: No: Shortness of Breath Gastrointestinal: No: Abdominal Pain Genitourinary: No: Dysuria Musculoskeletal: Positive: Myalgias, Arthralgias, Limited ROM, Pain Skin: No Rash Neurologic: No: Weakness Psychiatric: No: Depression Endocrine: No: Polydipsia Hematologic/Lymphatic: No: Easy Bruising Physical Exam Narrative GENERAL: Moderately obese female in no obvious distress SKIN: Warm and dry. Normal color. Normal turgor. No rash. HEAD: Atraumatic. Normocephalic. EYES: Pupils equal and round. No scleral icterus. No injection or drainage. ENT: No nasal bleeding or discharge. Mucous membranes pink and moist. Pharynx is clear. Airways patent NECK: Trachea midline. Supple and nontender CARDIOVASCULAR: Regular rate and rhythm. RESPIRATORY: No accessory muscle use. Clear to auscultation. Breath sounds equal bilaterally. MUSCULOSKELETAL: Extremities without clubbing, cyanosis, or edema. No obvious deformities. Patient has no increased pain with palpation of the lower lumbar spine or sciatic notch. Patient has no weakness in the lower extremities. Tendon reflexes are 2+ and equal bilaterally patient has pain specifically with internal rotation of the hip consistent with piriformis muscle. NEUROLOGICAL: Awake and alert. No obvious cranial nerve deficits. Motor grossly within normal limits. Five out of 5 muscle strength in the arms and legs. Normal speech. PSYCHIATRIC: Appropriate mood and affect; insight and judgment normal. Data Data Last Documented VS Vital Signs Date Time Temp Pulse Resp B/P (MAP) Pulse Ox O2 Delivery O2 Flow Rate FiO2 12/24/17 20:00 98.5 93 16 156/77 (103) 100 Room Air MDM Medical Decision Making Medical Screen Exam Complete: Yes Emergency Medical Condition: Yes Medical Record Reviewed: Yes Differential Diagnosis Low back pain. Piriformis syndrome. Muscle spasm. Narrative Course Patient is medically stable at time of exam. Repeat radiographic imaging is not felt warranted based on my history and physical. Stretching and exercises are demonstrated to the patient. Patient is given 600 mg ibuprofen 3 times daily #60. Patient also given Norflex 100 mg nightly #20. Patient is to take Tylenol as well as needed Patient is to use heat and stretching as discussed. Patient to follow-up with primary care physician as scheduled. Diagnosis Primary Impression: Piriformis syndrome of right side Referrals: Primary Care Physician Patient Instructions: General Instructions, Piriformis Syndrome (ED), Piriformis Syndrome Exercises (GEN) Additional Instructions: Repeat radiographic imaging is not felt warranted based on my history and physical. Stretching and exercises are demonstrated to the patient. Patient is given 600 mg ibuprofen 3 times daily #60. Patient also given Norflex 100 mg nightly #20. Patient is to take Tylenol as well as needed Patient is to use heat and stretching as discussed. Patient to follow-up with primary care physician as scheduled. Med/Other Pt SpecificInfo: Prescription(s) given Disposition: 01 DISCHARGE HOME Condition: Stable Ian Wilson Dec 24, 2017 20:37
[2017-12-24] MEDS ORDERED: IBUP-232 PO (21:03)
[2017-12-24] MEDS ORDERED: ORPH100T2 PO (21:03)
== END 2017-12-24 21:20 | disposition home or self-care (01) ==
LOC: NEPD 19:58
DX: G57.01 Lesion of sciatic nerve, right lower limb (principal)
CPT/HCPCS: 99283

== ENCOUNTER 2018-04-03 13:22 | Emergency (ER) | payer MEDICAID ==
[~2018-04-03] VITALS: Ht 160 cm; Wt 131.3 kg
[~2018-04-03 13:22] MED LIST changes: +IBUP-232 PO; +ORPH100T2 PO
[2018-04-03 13:50] VITALS: BP 171/83; PULSE 95; RESP 18; TEMP 98.4; O2SAT 100
== END 2018-04-03 14:31 | disposition left against medical advice (07) ==
LOC: PHED 13:22
DX: G43.909 Migraine, unspecified, not intractable, without status migrainosus (principal); Z53.21 Procedure and treatment not carried out due to patient leaving prior to being seen by health care provider
CPT/HCPCS: 99281